=== PATIENT | female | born 1970 | race Caucasian/White ===

== ENCOUNTER 2022-05-30 00:24 | Day surgery (SDC) | payer OTHER, SELFPAY ==
[2022-05-21 12:16] VITALS: BMI 37.8
--- NOTE | 2022-05-21 12:20 | PC.NURSE ---
Report to the Outpatient Waiting Room, entrance under the green pavilion located off [facility], at time 1:00 on date 05/30/22. Planned Procedure Time: 3:00. Time changes happen often and if your time is changed the preop area will call you the afternoon before. - You and your visitor will be asked to self-screen and do not enter if you have any COVID symptoms. - Only one visitor is requested with a max of two and NO children visitors are allowed at this time. - The patient visitor may be requested to leave or wait in car when not with patient due to distancing restrictions. - A mask is optional within the hospital at this time. Patients may have clear liquids (water, carbonated beverages, clear teas, apple juice) until 3 hours prior to surgery with a maximum of 20 ounces. - No food from midnight until time of surgery Take the following medications with a SIP of water the morning of surgery: N/A DO NOT STOP ANY OF YOUR OTHER PRESCRIPTION MEDICATIONS PRIOR TO SURGERY EXCEPT THE FOLLOWING Medications to discontinue per physician: N/A Date to take last dose: N/A Please no make-up, nail urdu, hairspray, perfume, deodorant, or body powder the day of surgery. No jewelry (including any body piercings) or valuables the day of surgery, leave them at home. Please take a shower or bath the night before, or the morning of, surgery with an antibacterial soap. Wear comfortable, loose fitting clothing. - Jewelry must be removed prior to entering the operating room. Rings and piercings that are not removed may be cut off. - The hospital will not accept responsibility for valuables. - Please leave all valuables, including medications, at home the day of surgery. If you are going home after surgery, a licensed regional dedicated truck driver must drive you home. - NO public transportation without another adult if you receive anesthesia. - We recommend that an adult stay with you for 24 hours following discharge. - We also recommend that you do not drive, make important decision, drink alcoholic beverages, or take any drugs that were not prescribed by your health care provider for at least 24 hours after your discharge time. Follow any additional instructions given to you from your surgeon. If you or anyone in your household have experienced Covid symptoms in the past week, please notify your surgeon or the nurse liaison at the phone number below for possible testing. Telephone instructions given to GAGE - PRITESH PHILLIPS and asked if any additional questions and then verbalized understanding. Patient advised to call surgeon office or pre surgery nurse liaison [phone] if any additional questions.
[2022-05-30] VITALS (24 sets, daily range): BP systolic 121–146; BP diastolic 64–89; PULSE 89–120; RESP 16–24; TEMP 36.2–37.7; O2SAT 91–98
--- NOTE | 2022-05-30 07:45 | P.HP_ITS ---
H&P: HPI History of Present Illness Date/Time: 05/30/22 07:45 Chief Complaint: abnormal uterine bleeding Narrative: 51-year-old female who presents for hysteroscopy D&C for abnormal uterine bleeding. Patient has had abnormal bleeding for several months. Pelvic ultrasound showed a posterior uterine fibroid. Endometrial lining was noted to be thickened. Patient had office endometrial biopsy which was suggestive of polyp. Patient elects for hysteroscopy and D&C for management of abnormal uterine bleeding. 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 Gender identity (if verbalized by the patient): Female Sexual Orientation (if Verbalized by the Patient): Straight or Heterosexual Spiritual care concerns: No Meds Home Medications and Allergies Home Medications Medication Instructions Recorded Confirmed Type norgestimate 0.25 mg-ethinyl 1 tablet PO DAILY #28 tabs 05/20/22 05/21/22 Rx estradiol 35 mcg tablet (Sprintec (28)) Allergies Allergy/AdvReac Type Severity Reaction Status Date / Time contrast dye Allergy Intermediate hives Uncoded 05/21/22 12:16 Assessment and Plan Assessment and plan (1) Abnormal uterine bleeding (AUB): Code(s): N93.9 - Abnormal uterine and vaginal bleeding, unspecified Status: Acute Assessment and Plan: Patient has had heavy prolonged bleeding for the past several months Patient reports continued bleeding for the last 8 weeks Patient has continued to bleed through progesterone only pills x2 Patient found to be anemic and currently taking iron ? Patient still has spotting on continuous OCPs Endometrial biopsy suggestive of uterine polyp Management options discussed at length Patient consented for hysteroscopy, D&C
--- NOTE | 2022-05-30 07:47 | WPDHPUPDATE1 ---
History and Physical Update Update Date/Time: 05/30/22 07:47 History and Physical has been reviewed, including an updated exam of the patient. There are NO changes in the patient's condition. Risks, benefits, and alternatives have been discussed and questions answered. Patient agrees to proceed with procedure.
--- NOTE | 2022-05-30 10:09 | WPDANESEPPF ---
Anes - Initial Pre Proc Eval Procedure: Operation Date: 05/30/22 13:00 Proposed Procedures p Hysteroscopy, Dilation and Curettage - Bjorn Sotelo MD Date/Time: 05/30/22 10:09 Surgeon: Bjorn Sotelo MD Pre Op Diagnosis: Abnormal Uterine Bleed Patient Data Age: 51 Gender: F Height: 1.63 m Weight: 99.8 kg Allergies Allergy/AdvReac Type Severity Reaction Status Date / Time contrast dye Allergy Intermediate hives Uncoded 05/30/22 11:56 Home Medications Medication Instructions Recorded Confirmed Type norgestimate 0.25 mg-ethinyl 1 tablet PO DAILY #28 tabs 05/20/22 05/21/22 Rx estradiol 35 mcg tablet (Sprintec (28)) Patient hx anesthesia problems: none Family hx anesthesia problems: none Results Review: All pre-operative results and documents have been reviewed as part of the pre-operative evaluation. [facility] Past Medical History Medical History Anemia Ectopic FH: cholecystectomy Surgical History Surgical History (Updated 05/30/22 @ 10:09 by Victor Hugo Cody DO) H/O tubal ligation History of cholecystectomy History of orthopedic surgery Family History Family History Mother Breast cancer MRSA carrier Other Diabetes mellitus Heart disease Lung cancer Social History Social History (Updated 04/15/22 @ 15:14 by Gaby Nicole MA) Smoking status: Never smoker Alcohol intake: never Substance use: never Substance use type: does not use Living arrangements: with family Occupation/Education: occupation 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 Gender identity (if verbalized by the patient): Female Sexual Orientation (if Verbalized by the Patient): Straight or Heterosexual Spiritual care concerns: No Anes - Eval Final PreProcedure Day of Procedure 05/30/22 10:09 Patient weight: obese Heart: regular rate and rhythm Lungs: clear to auscultation Airway: Mallampati scale class II Neurological: alert and oriented Last oral intake: >/= 8 hours ASA classification: II Emergent: no Anesthetic plan: proceed Anesthesia type and monitoring: general GIVS and standard monitoring Results Review: All pre-operative results and documents have been reviewed as part of the pre-operative evaluation. Informed Consent: The patient's anesthetic plan and its attendant risks and benefits were discussed with the patient/family/POA. Questions were solicited and answers provided to the satisfaction of the patient/family/POA.
[2022-05-30] MEDS: ACETAMINOPHEN 500 MG TABLET 1000 MG PO (11:33)
[2022-05-30] MEDS: LACTATED RINGERS 1,000 ML 30 ML IV CONT (11:46)
[2022-05-30 11:54] LABS: Hematocrit 25.2 % (37.0-47.0)
[2022-05-30 11:58] LABS: Hemoglobin 6.7 g/dL (12.0-15.0)
[2022-05-30] MEDS: LIDOCAINE 1% BUFFERED WITH 8.4% SODIUM BICARB 1 ML SYRINGE 10 ML INFILTRATE (12:54)
--- NOTE | 2022-05-30 13:06 | W.PM.PROC2 ---
Procedure Note - Detailed Date of Procedure 05/30/22 Pre-op Diagnosis Abnormal Uterine Bleed Post-op Diagnosis Same Procedure Performed paracervical block hysteroscopy dilation & curettage Surgeon Bjorn Sotelo MD Anesthesia General Indications abnormal uterine bleeding Findings Globally thickened endometrium with polypoid appearance. Normal tubal ostia bilaterally Description of Procedure Kelsie Ca presents for the above procedure for AUB. She was counseled as to the indications, risks, benefits, and alternatives to surgery, with the risks including bleeding, infection, damage to surrounding organs, VTE, and complications of anesthesia. Her verbal and written consent was obtained. PROCEDURE: The patient was taken to the OR and general anesthesia induced. She was prepped and draped in Kameron stirrups with support of the back and bilateral lower extremities. I/O catheterization performed of the bladder. The above findings were noted. Infiltration with 1% lidocaine at the 3 and 9 o'clock cervical positions was performed. A single tooth tenaculum was placed on the anterior lip of the cervix. The cervix was dilated with sequential Karyna dilators. Hysteroscopy, using a normal saline medium, was performed and showed the above findings. Sharp uterine curettage was then performed and tissue placed on Telfa. The tenaculum was removed and hemostasis was observed. The patient tolerated the procedure well. Sponge, lap, and needle counts were correct. The patient was taken to the recovery room in stable condition. Estimated Blood Loss 10 Urine Output 200 Drains No Packing No Pathology Yes (endometrial curettings ) Complications No immediate complications Condition Stable Disposition PACU [facility] Billing Surgery - Charge Forward: Surgery Billing
--- NOTE | 2022-05-30 15:26 | PC.NURSE ---
This patient, Corinne Ca, was received from PACU on 05/30/22 at 1526. Patient/family oriented to unit policies and routines.
[2022-05-30] MEDS: TRANEXAMIC ACID 1,000MG/ISO100 1,000 MG/100 ML BAG 200 MG IVPB (16:08)
[2022-05-30] MEDS: IBUPROFEN 600 MG TABLET PO (20:11)
[2022-05-30 21:44] LABS: Influenza A QL RT-PCR Negative (Negative); Influenza B QL RT-PCR Negative (Negative); RSV RNA, RT-PCR Negative (Negative); SARS-CoV-2 RNA PCR Negative
[2022-05-30 22:45] LABS: Hematocrit 27.5 % (37.0-47.0); Mean Corpuscular HGB Conc 29.1 g/dl (32-36); Mean Corpuscular Hemoglobin 21.2 pg (26-34); Mean Corpuscular Volume 72.8 fl (80-100); Mean Platelet Volume 10.2 fl (7.4-10.4); Platelet Count Result 344 k/mm3 (150-375); Red Blood Count 3.78 M/mm3 (4.2-5.4); Red Cell Distribution Width 20.6 % (11.5-14.5)
[2022-05-30 23:47] LABS: Anisocytosis 2+ (NORMAL); Band Neutrophils Percent 13 % (0-6); Giant Platelets Present; Large Platelets Present; Lymphocytes Absolute Manual 0.95 K/mm3 (1.1-4.5); Monocytes Percent Manual 2 % (3-9); Neutrophils Absolute Manual 3.95 K/mm3 (1.7-7.2); Neutrophils Percent Manual 66 % (46-73); Nucleated Red Blood Cells 1 %; Platelet Estimate Adequate (Adequate); Total Cells Counted 100
[2022-05-30 23:48] LABS: Macrocytosis 1+ (NORMAL); Microcytosis 2+ (NORMAL); Ovalocytes 1+ (NORMAL); Poikilocytosis 2+ (NORMAL); Schistocytes 1+ (NORMAL); Tear Drop Cells 1+ (NORMAL)
[2022-05-30 23:49] LABS: Hypochromasia 2+ (NORMAL); Polychromasia 1+ (NORMAL)
[2022-05-30 23:51] LABS: Smudge Cells PRESENT
== END 2022-05-30 23:57 | disposition home or self-care (01) ==
LOC: ANHSURGERY 10:43 → ANHOB2 15:23
PROVIDERS: PCP Physician Assistant; Visit Provider Student in an Organized Health Care Education/Training Program
PROC: 0U5B8ZZ Destruction of Endometrium, Via Natural or Artificial Opening Endoscopic (ICD-10-PCS; CPT 58563; principal; 2022-05-30 13:00)
DX: N93.9 Abnormal uterine and vaginal bleeding, unspecified (principal); N84.0 Polyp of corpus uteri; E66.9 Obesity, unspecified; Z68.39 Body mass index [BMI] 39.0-39.9, adult
CPT/HCPCS: 58558; 36415; 36430; 85014; 85018; 85025; 86850; 86900; 86901; 86923; 87637; 88305; 99199; A9270; J1100; J2250; J2405; J2704; J3010; J7120; P9016